=== PATIENT | male | born 1990 | race Two or more races ===

== ENCOUNTER 2017-12-12 18:52 | Emergency (ER) | payer OTHER ==
[~2017-12-12] VITALS: Ht 177.8 cm; Wt 85.6 kg
[2017-12-12] MEDS ORDERED: NAPROXEN500 MG PO (21:54)
[2017-12-12] MEDS ORDERED: FLEXERIL10 MG PO (21:54)
[2017-12-12 22:03] VITALS: BP 128/74
== END 2017-12-12 22:04 | disposition home or self-care (01) ==
LOC: EME 18:52
DX: S16.1XXA Strain of muscle, fascia and tendon at neck level, initial encounter (principal); S06.0X0A Concussion without loss of consciousness, initial encounter; V49.40XA Driver injured in collision with unspecified motor vehicles in traffic accident, initial encounter; Y92.410 Unspecified street and highway as the place of occurrence of the external cause
CPT/HCPCS: 72040; 99281; 99284